=== PATIENT | female | born 1960 | race Caucasian/White ===

== ENCOUNTER 2022-10-08 07:53 | Day surgery (SDC) | payer MEDICAID ==
[~2022-10-08] VITALS: Ht 157.5 cm; Wt 125.8 kg
[2022-10-08] VITALS (8 sets, daily range): BP systolic 111–138; BP diastolic 69–100
[2022-10-08] MEDS ORDERED: LISI5TAB22 PO (08:23)
[2022-10-08] MEDS ORDERED: ESOM40CA54 PO (08:23)
[2022-10-08] MEDS ORDERED: CALC-499 (08:24)
[2022-10-08] MEDS ORDERED: ASCO100T12 PO (08:24)
[2022-10-08] MEDS ORDERED: MULT-1085 PO (08:25)
[2022-10-08] MEDS ORDERED: diphenhydrAMINE 25mg capsule PO PRN (08:30)
[2022-10-08] MEDS ORDERED: normal saline 1,000 ML IV SCH (08:30)
[2022-10-08 08:45] LABS: BASOPHILS # (AUTO) 0.1 X10'3 (0-0.2); BASOPHILS % (AUTO) 1.2 % (0-1); EOSINOPHILS # (AUTO) 0.2 X10'3 (0-0.9); EOSINOPHILS % (AUTO) 2.8 % (0-6); HEMATOCRIT 41.9 % (35.0-45.0); LYMPHOCYTES # (AUTO) 2.2 X10'3 (1.1-4.8); LYMPHOCYTES % (AUTO) 29.7 % (21-51); MEAN CORPUSCULAR HEMOGLOBIN 28.2 PG (27.0-31.0); MEAN CORPUSCULAR HGB CONC 33.5 g/dL (33.0-36.5); MEAN CORPUSCULAR VOLUME 84.2 FL (78-98); MEAN PLATELET VOLUME 6.7 FL (7.4-10.4); MONOCYTES # (AUTO) 0.6 X10'3 (0-0.9); MONOCYTES % (AUTO) 7.5 % (2-12); NEUTROPHILS # (AUTO) 4.5 X10'3 (1.8-7.7); NEUTROPHILS % (AUTO) 58.8 % (42-75); PLATELET COUNT 307 X10'3 (140-440); RED BLOOD COUNT 4.97 X10'6 (4.20-5.60); WHITE BLOOD COUNT 7.6 X10'3 (4.5-11.0)
[2022-10-08 09:09] LABS: ALBUMIN 3.4 G/DL (3.4-5.0); ANION GAP 9 (8-16); BLOOD UREA NITROGEN 18 MG/DL (7-18); CALCIUM 9.1 MG/DL (8.5-10.1); CHLORIDE 104 MMOL/L (99-107); CREATININE 1.06 MG/DL (0.40-0.90); GLUCOSE 117 MG/DL (70-104); POTASSIUM 4.1 MMOL/L (3.5-5.1); SODIUM 141 MMOL/L (135-145); TOTAL CARBON DIOXIDE 28.3 MMOL/L (24-32); eGFR 53 ML/MIN
[2022-10-08] MEDS ORDERED: LIDOcaine 1% 30ml preserv. free vial ONE (09:15)
[2022-10-08] MEDS ORDERED: heparin 1,000unit/ml 10ml vial 10 ML ONE (09:15)
[2022-10-08] MEDS ORDERED: verapamil 2.5 mg/ml inj IV ONE (09:15)
[2022-10-08] MEDS ORDERED: midazolam 1 mg/ML 2ml injection ONE ×3 (09:15→11:57)
[2022-10-08] MEDS ORDERED: iohexol 350MG/ML 100ml bottle IV ONE ×2 (09:15→11:53)
[2022-10-08] MEDS ORDERED: nitroGLYCERIN-Tridil 50MG/D5W 250 ML IV ONE (09:16)
[2022-10-08] MEDS ORDERED: fentaNYL/PF 50MCG/1 ML 2ML syringe ONE (09:17)
[2022-10-08] MEDS ORDERED: iohexol 350 MG/ML 50ML vial IV ONE (09:52)
[2022-10-08] MEDS ORDERED: clopidogrel 300mg tablet ONE (12:32)
[2022-10-08] MEDS ORDERED: aspirin 81mg tab.chew ONE (12:41)
[2022-10-08] MEDS ORDERED: ondansetron/PF 4mg/2ml inj IV PRN (13:20)
[2022-10-08] MEDS ORDERED: normal saline 1000ml 1,000 ML IV SCH (13:20)
[2022-10-08] MEDS ORDERED: proCHLORperazine 10 MG/2 ml inj IV PRN (13:20)
[2022-10-08] MEDS ORDERED: acetaminophen 325mg tablet PO PRN (13:20)
[2022-10-08] MEDS ORDERED: mag hydrox/Alum hydrox/simeth 30ml oral suspension PO ONE (13:20)
--- NOTE | 2022-10-08 14:29 | NUR ---
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 Bill to be notified via text from [facility].
== END 2022-10-08 16:10 | disposition home or self-care (01) ==
LOC: SSTAY O 07:53
PROVIDERS: ATTEND Internal Medicine Cardiovascular Disease
DX: I25.10 Atherosclerotic heart disease of native coronary artery without angina pectoris (principal); I10 Essential (primary) hypertension; E78.5 Hyperlipidemia, unspecified; Z79.899 Other long term (current) drug therapy; E66.01 Morbid (severe) obesity due to excess calories
CPT/HCPCS: 36415; 80048; 83735; 85025; 85610; 92978; 93005; 93458; 93571; 99152; 99153; C1725; C1751; C1753; C1769; C1874; C1894; C9600; J1644; J2250; J3010; J3490; J7030; Q0163; Q9967; 92979; 93572; A6258; A6449